=== PATIENT | male | born 1970 | race African-American/Black ===

== ENCOUNTER 2022-09-17 23:06 | Emergency (ER) | payer OTHER, SELFPAY ==
--- NOTE | ~2022-09-17 | XR_ITS ---
EXAMINATION: XR chest 1V portable INDICATION: COVID 19. TECHNIQUE: Portable AP chest at 0328 hours COMPARISON: None available FINDINGS: There are minimal airspace opacities of the lung bases. No pleural effusion or pneumothorax . The cardiomediastinal silhouette is normal. IMPRESSION: 1. Minimal bibasilar airspace opacities, consistent with atelectasis versus pneumonia. Reviewed, dictated and finalized at location A. [employer] IMPRESSION: 1. Minimal bibasilar airspace opacities, consistent with atelectasis versus pne umonia.
[2022-09-17 23:22] VITALS: BP 170/88; PULSE 102; RESP 16; TEMP 36.8; O2SAT 98
[2022-09-17 23:56] LABS: Influenza A QL RT-PCR Negative (Negative); Influenza B QL RT-PCR Negative (Negative); RSV RNA, RT-PCR Negative (Negative); SARS-CoV-2 RNA PCR Positive
--- NOTE | 2022-09-18 03:09 | ECG_ITS ---
Measurements Intervals [place] Rate: 68 P: 43 MD: 170 QRS: 42 QRSD: 103 T: 11 QT: 391 QTc: 416 Interpretive Statements SINUS RHYTHM NO PREVIOUS ECG AVAILABLE FOR COMPARISON Electronically Signed On 09-18-2022 8:42:51 [employer] by Zonia Kang M.D.
--- NOTE | 2022-09-18 04:06 | ED.GENADULT ---
HPI - General Adult General Chief complaint: Upper Respiratory Infection Stated complaint: URI, congestion ear pressure Time Seen by Provider: 09/18/22 01:09 History of Present Illness HPI narrative: This is a 52-year-old male presenting to ED with URI symptoms. Patient says he just got back on a trip from [facility], [place] and since then he has had flu-like symptoms. These include cough, congestion, fevers. The patient has taekn Silvia with no relief. He denies shortness of breath, chest pain, difficulty breathing. He is vaccinated against the flu. He only received 1 of 2 vaccinations for the COVID. He has had COVID infections in the past. Related Data Allergies Allergy/AdvReac Type Severity Reaction Status Date / Time No Known Allergies Allergy Verified 09/18/22 04:11 Review of Systems Review of Systems: CONSTITUTIONAL: Denies night sweats. EYES: No eye pain ENT: Denies rhinorrhea CARDIOVASCULAR: Denies palpitations RESPIRATORY: Denies hemoptysis GASTROINTESTINAL: Denies hematemesis GENITOURINARY: Denies hematuria. SKIN: Denies rash MUSCULOSKELETAL: Denies myalgia. NEUROLOGIC: Denies weakness. PSYCHIATRIC: Denies delusions PMFSH Past Medical History Medical History Healthy male adult Social History Social History (Updated 09/18/22 @ 04:08 by Quinn Lara MD) Social History: Patient drinks alcohol occasionally, smokes pack cigarettes a week, denies drug use Exam Narrative: APPEARANCE: No apparent distress. Head: atraumatic. EYES: EOMI, NOSE: Atraumatic NECK: Trachea midline RESPIRATORY: No increased rate of breathing clear to auscultation bilaterally CARDIOVASCULAR: RRR, no peripheral edema ABDOMINAL: Non-distended MUSCULOSKELETAl: No obvious deformities NEURO: Alert. Moving 4/4 extremities SKIN:: Warm, dry. Normal color PSYCHIATRIC: Normal affect Course Vital Signs Vital signs: Vital Signs Temperature 98.3 F 09/17/22 23:22 Pulse Rate 102 H 09/17/22 23:22 Respiratory Rate 16 09/17/22 23:22 Blood Pressure 170/88 H 09/17/22 23:22 Pulse Oximetry 98 09/17/22 23:22 Oxygen Delivery Room Air 09/17/22 23:22 Temperature 98.3 F 09/17/22 23:22 Pulse Rate 102 H 09/17/22 23:22 Respiratory Rate 16 09/17/22 23:22 Blood Pressure 170/88 H 09/17/22 23:22 Pulse Oximetry 98 09/17/22 23:22 Oxygen Delivery Room Air 09/17/22 23:22 Medical Decision Making MDM Narrative Medical decision making narrative: this is a well-appearing male presenting ED with URI symptoms. Patient was positive for flu. Chest x-ray showed no acute cardiopulmonary process as interpreted by myself. Official read will occur in the morning. Patient was originally tachycardic on presentation but his heart rate returned to normal without intervention. EKG interpretation: Rhythm [sinus], Rate 68, [place] -[normal], [place] -[normal], QRS [narrow], QTC [normal], T waves -[negative for concerning inversions], ST Segments - [Negative for concerning elevations] Final interpretations: [Normal Sinus Rhythm] at this time the patient is well-appearing with stable vital signs. He will be discharged home with return precautions if he develops chest pain or shortness of breath. He has been instructed to take Motrin Tylenol for his symptoms. Vital Signs Vital Signs: Vital Signs Temperature 98.3 F 09/17/22 23:22 Pulse Rate 102 H 09/17/22 23:22 Respiratory Rate 16 09/17/22 23:22 Blood Pressure 170/88 H 09/17/22 23:22 Pulse Oximetry 98 09/17/22 23:22 Oxygen Delivery Room Air 09/17/22 23:22 Temperature 98.3 F 09/17/22 23:22 Pulse Rate 102 H 09/17/22 23:22 Respiratory Rate 16 09/17/22 23:22 Blood Pressure 170/88 H 09/17/22 23:22 Pulse Oximetry 98 09/17/22 23:22 Oxygen Delivery Room Air 09/17/22 23:22 Lab Data Labs: Lab Results 09/17/22 Range/Units 23:13 Influenza A (RT-PCR) Negative (Negative) In
[2022-09-18 04:09] VITALS: BP 128/72; PULSE 77; RESP 16; TEMP 36.6; O2SAT 98
== END 2022-09-18 04:26 | disposition home or self-care (01) ==
PROVIDERS: Emergency Provider Emergency Medicine
DX: U07.1 COVID-19 (principal); Z28.311 Partially vaccinated for COVID-19; Z86.16 Personal history of COVID-19; F17.210 Nicotine dependence, cigarettes, uncomplicated
CPT/HCPCS: 71045; 87637; 93005; 99283